=== PATIENT | male | born 1970 | race Caucasian/White ===

== ENCOUNTER 2019-05-31 15:41 | Emergency (ER) | payer MEDICAID ==
[~2019-05-31] VITALS: Ht 182.9 cm; Wt 82.6 kg
[2019-05-31 15:46] VITALS: BP 136/85; PULSE 95; RESP 18; Ht 182.9 cm; Wt 82.6 kg
[2019-05-31] MEDS ORDERED: KETOROLAC 60 MG INJ IM STA (16:15)
--- NOTE | 2019-05-31 16:15 | ERD ---
ER Documentation Chief Complaint Chief Complaint partial amputation to R 3rd/4th fingers s/p crush injury HPI Patient is a 49 years old male with no known past medical history presenting to the clinic for partial right third and fourth distal digit injury x few hours ago. Patient reports moving a 20+ ton mobile home on a roller when the mobile home slipped and fell onto his right distal fourth and fifth digit. Patient admits to removing fingers as the mobile home was falling but still got caught as he was retracting his hands. Patient reports pain with active bleeding that has stopped as of now. Patient rates his pain 9/10 and denies taking any medication. Patient was seen and evaluated by an urgent care who referred him to the ER. Patient denies tetanus vaccination within the last 10 years. ROS All systems reviewed and are negative except as per history of present illness. Medications Home Meds Active Scripts Ibuprofen* (Motrin*) 800 Mg Tab, 800 MG PO Q6H PRN for PAIN AND OR ELEVATED TEMP, #30 TAB Prov:REJI MCGUIRE PA-C 05/31/19 Hydrocodone/Acetaminophen (Preston 5-325 Tablet) 1 Each Tablet, 1 TAB PO Q6H PRN for PAIN, #7 TAB Prov:REJI MCGUIRE PA-C 05/31/19 Cephalexin* (Keflex*) 500 Mg Capsule, 500 MG PO QID for 5 Days, CAP Prov:REJI MCGUIRE PA-C 05/31/19 Allergies Allergies: Coded Allergies: No Known Allergy (Unverified , 05/31/19) Physical Exam Vitals Vital Signs Date Temp Pulse Resp B/P (MAP) Pulse Ox O2 O2 Flow FiO2 Time Delivery Rate 05/31/19 97.8 95 18 136/85 98 15:46 (102) Physical Exam Const: No acute distress Head: Atraumatic Eyes: Normal Conjunctiva Resp: Clear to auscultation bilaterally Cardio: Regular rate and rhythm, no murmurs Skin: No petechiae or rashes Neur: Awake and alert Psych: Normal Mood and Affect Right 3rd & 4th digit exam: Degloving of distal 3rd and 4th digit from base of nailbed. No active bleeding. Distal phalanx (bone visualized) noted on exam that is tender to touch. Results 24 hrs Current Medications Medications Dose Sig/Neil Start Time Status Last (Trade) Ordered Route PRN Stop Time Admin Dose Reason Admin Ketorolac 60 mg ONCE STAT 05/31/19 DC 05/31/19 Tromethamine IM 16:15 05/31/19 16:22 (Toradol) 16:18 1 tab ONCE ONCE 05/31/19 DC 05/31/19 Acetaminophen PO 16:30 05/31/19 16:22 / 16:31 Hydrocodone Bitart (Preston (5/325)) Lidocaine 1 applic ONCE ONCE 05/31/19 DC (Lidocaine TOP 16:30 05/31/19 4% Solution) 16:31 Diphtheria/ 0.5 ml ONCE ONCE 05/31/19 DC 05/31/19 Tetanus/Acell IM* 17:00 05/31/19 16:41 Pertussis 17:01 (Adacel) Procedures/MDM Patient was seen and evaluated for degloving of right 3rd & 4th digit. Wound cleaning with normal saline and viscous lidocaine administered followed by dressing application with Surgicel. Patient tolerated the procedure without complication. Patient was given Toradol 60 mg IM and Preston p.o. Dr. Jaramillo was manfred who recommends patient be treated outpatient by hand surgeon. Dr. Bailey's office was manfred who recommends calling Dr. Ahn who was on-call. Dr. Ahn recommends dressing application with Surgicel and Keflex PO. Patient is stable ready for discharge. Patient was advised to be compliant with [facility] or Dr. Chowdary. Patient will be discharged with Keflex. Departure Diagnosis: Primary Impression: Degloving injury of finger Encounter type: initial encounter Qualified Codes: S61.209A - Unspecified open wound of unspecified finger without damage to nail, initial encounter Condition: Stable Patient Instructions: Crush Injury, Hand/Finger Referrals: [facility] Additional Instructions: Paciente aconseja volver a Departamento de urgencias inmediatamente para sntomas nuevos o que empeoran . Paciente aconseja posteriores con el PCP en 2-3 ruiz . Paciente verbaliza la comprehensin y est de acuerdo con el tratamiento y el curso de accin. Si el paciente no tiene ninguna de atencin primaria pueden seguir con [facility] [address] [place] [address] o [facility] + [address] [address] REJI MCGUIRE PA-C May 31, 2019 16:15
[2019-05-31] MEDS ORDERED: HYDROCODONE/APAP (5/325) TAB PO ONE (16:30)
[2019-05-31] MEDS ORDERED: LIDOCAINE 4% SOLUTION 50 ML BTL TOP ONE (16:30)
[2019-05-31] MEDS ORDERED: DIPHTH/TET/ACEL PERTUSS (ADULT) 0.5 ML VIAL IM* ONE (17:00)
[2019-05-31] MEDS ORDERED: IBUP800T48 PO (18:47)
[2019-05-31] MEDS ORDERED: CEPH-443 PO (18:47)
[2019-05-31] MEDS ORDERED: HYDR-4011 PO (18:47)
== END 2019-05-31 19:45 | disposition home or self-care (01) ==
LOC: FTE 15:41
DX: S61.202A Unspecified open wound of right middle finger without damage to nail, initial encounter (principal); S61.204A Unspecified open wound of right ring finger without damage to nail, initial encounter; W20.8XXA Other cause of strike by thrown, projected or falling object, initial encounter; Y92.89 Other specified places as the place of occurrence of the external cause; Z23 Encounter for immunization
CPT/HCPCS: 73130; 90471; 90715; 96372; J1885; Z7502; Z7610